=== PATIENT | male | born 1950 | race Caucasian/White ===

== ENCOUNTER 2017-08-07 06:28 | Day surgery (SDC) | payer MEDICARE, BC ==
[2017-08-07] MEDS ORDERED: fentaNYL 100 MCG/2 ML SDV ONE (07:00)
[2017-08-07] MEDS ORDERED: Midazolam 1 MG/ML 2 ML SDV ONE (07:00)
[2017-08-07] MEDS ORDERED: Propofol 200 MG/20 ML SDV ONE (07:00)
[2017-08-07] MEDS ORDERED: Lactated Ringers 1,000 ML IV SCH (07:00)
--- NOTE | 2017-08-08 09:53 | PROC ---
DATE OF PROCEDURE: 08/07/2017 INDICATIONS: Farooq is a 67-year-old male who comes in for a screening colonoscopy because there is a strong family history of colon cancer with his brother. The risks and benefits were explained and the patient was taken to the OR. PROCEDURE IN DETAIL: Anesthesia was given by nurse dust box tender. During the procedure, we used 2 mg of Versed, 2 mL of fentanyl, and 200 mg of propofol. The Olympus 180L scope was used, it was placed in the rectum and after examination of the rectum with a gloved finger and then the tube was placed into the rectum and advanced under direct vision. We did get to the cecum with minimal difficulty. Upon slow retraction of the tube, we noted no lesions or ulceration. No abnormalities throughout the entire colon except for infrequent diverticula. The tube was removed. The patient tolerated the procedure well. PREOPERATIVE DIAGNOSIS: Family history of colon cancer. POSTOPERATIVE DIAGNOSIS: Normal colon from cecum to rectum except for diverticula. Levon Hurtado MD /[id number]
== END 2017-08-07 09:12 | disposition home or self-care (01) ==
LOC: JP.SDS 06:28
PROVIDERS: ATTEND Internal Medicine
DX: Z12.11 Encounter for screening for malignant neoplasm of colon (principal); K57.30 Diverticulosis of large intestine without perforation or abscess without bleeding; I10 Essential (primary) hypertension; G47.33 Obstructive sleep apnea (adult) (pediatric); Z99.89 Dependence on other enabling machines and devices; Z88.0 Allergy status to penicillin
CPT/HCPCS: J2250; J2704; J3010; J7120

== ENCOUNTER 2018-09-30 07:13 | Inpatient (IN) | payer MEDICARE, BC ==
--- NOTE | 2018-09-30 08:06 | EDM.PDOC ---
ED HPI GENERAL MEDICAL PROBLEM - General Chief Complaint: Respiratory Problem Stated Complaint: SHORTNESS OF BREATH Time Seen by Provider: 09/30/18 07:50 Source of Information: Reports: Patient, Family, Old Records, RN History Limitations: Reports: No Limitations - History of Present Illness INITIAL COMMENTS - FREE TEXT/NARRATIVE: 68 yo male here with MULLER for the past month that has accelerated over the past few days. He is coughing, but this is minimally productive. No fever or chills. No black or bloody stools. No hx of lung dz. No chest pains. Has sleep apnea and uses a CPAP device at night and with this sleeps fine. Has not been to the clinic at any point for this. Recalled later in his ER stay that he had had R calf pain about 1.5 weeks ago, thought it was a "Sha Horse". Onset: Gradual Onset Date: 08/31/18 Duration: Week(s):, Getting Worse Location: Reports: Chest Quality: Reports: Other (no pain) Severity: Moderate Improves with: Reports: Rest Worsens with: Reports: Movement (exertion) Context: Reports: Other (see HPI) Associated Symptoms: Reports: Cough, Shortness of Breath (tin with exertion). Denies: Chest Pain, Fever/Chills Treatments RECRUITING ASSOCIATE: Reports: Other (see below) (none) - Related Data Allergies Allergy/AdvReac Type Severity Reaction Status Date / Time No Known Allergies Allergy Verified 08/07/17 06:44 Home Meds: Home Meds Lisinopril 20 mg PO DAILY 08/05/17 [History] Past Medical History HEENT History: Reports: Impaired Vision Cardiovascular History: Reports: Hypertension Respiratory History: Reports: Sleep Apnea Gastrointestinal History: Reports: None Musculoskeletal History: Reports: Back Pain, Chronic, Gout Endocrine/Metabolic History: Reports: Obesity/BMI 30+ - Infectious Disease History Infectious Disease History: Reports: Chicken Pox, Measles, Mumps - Past Surgical History Head Surgeries/Procedures: Reports: None HEENT Surgical History: Reports: None Cardiovascular Surgical History: Reports: None Respiratory Surgical History: Reports: None GI Surgical History: Reports: Colonoscopy, Hernia, Abdominal Endocrine Surgical History: Reports: None Musculoskeletal Surgical History: Reports: None Dermatological Surgical History: Reports: None Social & Family History - Family History Family Medical History: Noncontributory - Tobacco Use Smoking Status *Q: Never Smoker - Caffeine Use Caffeine Use: Reports: Coffee - Recreational Drug Use Recreational Drug Use: No ED ROS GENERAL - Review of Systems Review Of Systems: See Below Constitutional: Reports: No Symptoms HEENT: Reports: No Symptoms Respiratory: Reports: Shortness of Breath, Cough. Denies: Wheezing, Pleuritic Chest Pain, Sputum, Hemoptysis Cardiovascular: Reports: Dyspnea on Exertion, Lightheadedness (occasionally with standing). Denies: Claudication, Edema, Orthopnea, Palpitations Endocrine: Reports: No Symptoms GI/Abdominal: Reports: No Symptoms : Reports: No Symptoms Musculoskeletal: Reports: No Symptoms Skin: Reports: No Symptoms Neurological: Reports: No Symptoms Psychiatric: Reports: No Symptoms ED EXAM, GENERAL - Physical Exam Exam: See Below Exam Limited By: No Limitations General Appearance: Alert, WD/WN, No Apparent Distress Eye Exam: Right Eye: Vision Changes, Bilateral Eye: Normal Inspection Ears: Normal External Exam, Normal Canal, Hearing Grossly Normal, Normal TMs Ear Exam: Bilateral Ear: Auricle Normal, Canal Normal, TM normal Nose: Normal Inspection, No Blood Throat/Mouth: Normal Inspection, Normal Lips, Normal Oropharynx, Normal Voice, No Airway Compromise Head: Atraumatic, Normocephalic Neck: Normal Inspection Respiratory/Chest: No Respiratory Distress, Lungs Clear, Normal Breath Sounds, No Accessory Muscle Use Cardiovascular: Regular Rate, Rhythm, No Edema, Tachycardia GI/Abdominal: Normal Bowel Sounds, Soft, Non-Tender, No Distention Back Exam: Normal Inspection Extremities: Normal Inspection, Normal Range of Motion, Non-Tender, No Pedal Edema Neurological: Alert, Oriented, CN II-XII Intact, Normal Cognition, No Motor/ Sensory Deficits Psychiatric: Normal Affect, Normal Mood Skin Exam: Warm, Dry, Intact, Normal Color, No Rash Course - Vital Signs Text/Narrative:: Dr. Hurtado notified @ 1000h Last Recorded V/S: Last Vital Signs Temp 37.0 C 09/30/18 14:59 Pulse 91 09/30/18 14:59 Resp 16 09/30/18 14:59 BP 94/72 09/30/18 14:59 Pulse Ox 92 L 09/30/18 16:39 - Orders/Labs/Meds Orders: Active Orders 24 hr Category Date Time Status Patient Status [ADT] Routine ADT 09/30/18 10:49 Active Height and Weight [RC] DAILY Care 09/30/18 10:40 Active Intake and Output [RC] QSHIFT Care 09/30/18 10:51 Active Oxygen Therapy [RC] PRN Care 09/30/18 10:49 Active Up ad Esperanza [RC] ASDIRECTED Care 09/30/18 10:40 Active VTE/DVT Education [RC] Per Unit Routine Care 09/30/18 10:49 Active Vital Signs [RC] Q4H Care 09/30/18 10:49 Active Regular Diet [DIET] Diet 10/01/18 Breakfast Active Sodium Chloride 0.9% [Normal Saline] 1,000 ml Med 09/30/18 09:00 Active IV ASDIRECTED Sodium Chloride 0.9% [Saline Flush] Med 09/30/18 10:40 Active 10 ml FLUSH ASDIRECTED PRN Warfarin [Coumadin] Med 09/30/18 13:00 Active 5 mg PO DAILY@1300 Saline Lock Insert [OM.PC] Routine Oth 09/30/18 10:40 Ordered Resuscitation Status Routine Resus Stat 09/30/18 10:40 Ordered Medication Orders Enoxaparin Sodium 80 mg/ (Enoxaparin Sodium 30 mg) 110 mg SUBCUT Q12H [facility] Sodium Chloride (Normal Saline) 1,000 mls @ 150 mls/hr IV ASDIRECTED [facility] Last Admin: 09/30/18 09:38 Dose: 150 mls/hr Lisinopril (Prinivil) 20 mg PO DAILY [facility] Sodium Chloride (Saline Flush) 10 ml FLUSH ASDIRECTED PRN PRN Reason: Keep Vein Open Warfarin Sodium (Coumadin) 5 mg PO DAILY@1300 [facility] Last Admin: 09/30/18 14:20 Dose: 5 mg Labs: Laboratory Tests 09/30/18 09/30/18 09/30/18 Range/Units 08:06 08:06 08:06 WBC 11.8 H (4.5-11.0) K/uL RBC 5.14 (4.30-5.90) M/uL Hgb 15.1 H (12.0-15.0) g/dL Hct 46.1 (40.0-54.0) % MCV 90 (80-98) fL MCH 29 (27-31) pg MCHC 33 (32-36) % Plt Count 202 (150-400) K/uL D-Dimer, Quantitative 3290 H (0.0-400.0) ng/mL Sodium 141 (140-148) mmol/L Potassium 4.3 (3.6-5.2) mmol/L Chloride 105 (100-108) mmol/L Carbon Dioxide 22 (21-32) mmol/L Anion Gap 13.6 (5.0-14.0) mmol/L BUN 18 (7-18) mg/dL Creatinine 1.3 (0.8-1.3) mg/dL Est Cr Clr Drug Dosing 49.43 mL/min Estimated GFR (MDRD) 55 L (>60) Glucose 132 H (74-106) mg/dL Calcium 9.1 (8.5-10.1) mg/dL Troponin I 0.649 H* (0.000-0.056) ng/mL NT-Pro-B Natriuret Pep (5-125) pg/mL 09/30/18 Range/Units 08:06 WBC (4.5-11.0) K/uL RBC (4.30-5.90) M/uL Hgb (12.0-15.0) g/dL Hct (40.0-54.0) % MCV (80-98) fL MCH (27-31) pg MCHC (32-36) % Plt Count (150-400) K/uL D-Dimer, Quantitative (0.0-400.0) ng/mL Sodium (140-148) mmol/L Potassium (3.6-5.2) mmol/L Chloride (100-108) mmol/L Carbon Dioxide (21-32) mmol/L Anion Gap (5.0-14.0) mmol/L BUN (7-18) mg/dL Creatinine (0.8-1.3) mg/dL Est Cr Clr Drug Dosing mL/min Estimated GFR (MDRD) (>60) Glucose (74-106) mg/dL Calcium (8.5-10.1) mg/dL Troponin I (0.000-0.056) ng/mL NT-Pro-B Natriuret Pep 4851 H (5-125) pg/mL Meds: Medications Generic Name Dose Route Start Last Admin Trade Name Freq PRN Reason Stop Dose Admin Enoxaparin Sodium 80 mg/ 110 mg 09/30/18 22:00 Enoxaparin Sodium 30 mg SUBCUT Q12H [facility] Sodium Chloride 1,000 mls @ 150 mls/hr 09/30/18 09:00 09/30/18 09:38 Normal Saline IV 150 mls/hr ASDIRECTED [facility] Administration Lisinopril 20 mg 10/01/18 09:00 Prinivil PO DAILY [facility] Sodium Chloride 10 ml 09/30/18 10:40 Saline Flush FLUSH ASDIRECTED PRN Keep Vein Open Warfarin Sodium 5 mg 09/30/18 13:00 09/30/18 14:20 Coumadin PO 5 mg DAILY@1300 [facility] Administration Discontinued Medications Generic Name Dose Route Start Last Admin Trade Name Freq PRN Reason Stop Dose Admin Enoxaparin Sodium 100 mg 09/30/18 09:53 09/30/18 09:58 Lovenox SUBCUT 09/30/18 09:54 100 mg ONETIME ONE Administration Sodium Chloride 80 mls @ 3 mls/sec 09/30/18 09:00 09/30/18 09:26 Normal Saline IV 09/30/18 16:00 3 mls/sec ASDIRECTED [facility] Administration Iopamidol 79 ml 09/30/18 09:00 09/30/18 09:27 Isovue-370 (76%) IV 09/30/18 16:00 100 ml . DIRECTED [facility] Administration Sodium Chloride 10 ml 09/30/18 09:00 09/30/18 09:10 Saline Flush FLUSH 09/30/18 09:01 10 ml ONETIME ONE Administration - Radiology Interpretation Free Text/Narrative:: CXR-neg CTA chest-bilateral PE's CT Results Date: 09/30/18 Departure - Departure Time of Disposition: 12:00 Disposition: Admitted As Inpatient 64 Condition: Fair Clinical Impression: Pulmonary emboli Qualifiers: Pulmonary embolism type: other Chronicity: acute Acute cor pulmonale presence: without acute cor pulmonale Qualified Code(s): I26.99 - Other pulmonary embolism without acute cor pulmonale - Discharge Information - My Orders Last 24 Hours: My Active Orders 09/30/18 09:00 Sodium Chloride 0.9% [Normal Saline] 1,000 ml IV ASDIRECTED - Assessment/Plan Last 24 Hours: My Active Orders 09/30/18 09:00 Sodium Chloride 0.9% [Normal Saline] 1,000 ml IV ASDIRECTED
[2018-09-30] MEDS ORDERED: Iopamidol 755 Mg/ML 100 ML Bottle IV SCH (09:00)
[2018-09-30] MEDS ORDERED: Sodium Chloride 0.9% 1,000 ML IV SCH (09:00)
[2018-09-30] MEDS ORDERED: Sodium Chloride 0.9% 10 ML Syringe FLUSH ONE (09:00)
[2018-09-30] MEDS ORDERED: Sodium Chloride 0.9% 80 ML IV SCH (09:00)
[2018-09-30] MEDS ORDERED: Enoxaparin 100 MG/1 ML Syringe SUBCUT ONE (09:53)
[2018-09-30] MEDS ORDERED: Sodium Chloride 0.9% 10 ML Syringe FLUSH PRN (10:40)
--- NOTE | 2018-09-30 10:50 | CRLCT ---
INDICATION: Shortness of breath, elevated D-dimer. COMPARISON: Chest radiograph 09/30/2018. TECHNIQUE: CT volumetric acquisition was performed of the thorax during intravenous infusion Omnipaque-350 nonionic intravenous contrast. Please note that all CT scans at this facility use dose modulation, iterative reconstruction, and/or weight-based dosing when appropriate to reduce radiation dose to as low as reasonably achievable. FINDINGS: Large burden bilateral pulmonary emboli within the distal main pulmonary arteries and extending into the segmental and subsegmental pulmonary artery branches of all the lobes. There is evidence of right heart strain with enlargement of the right ventricle and leftward bowing of the interventricular septum. The lungs are clear bilaterally without evidence of developing pulmonary infarcts. Mild right basilar atelectasis. Calcified granuloma left upper lobe. Aneurysmal dilation of the ascending thoracic aorta to 4.3 cm in greatest AP dimension. There is also enlargement of the pulmonary artery trunk. Moderately severe coronary artery plaque. No pericardial effusion. No thoracic lymphadenopathy. Linear subcapsular enhancement or calcification along the posterior aspect of the spleen (series 4 image 111) may be due to phase of contrast. A few tiny calcified splenic granulomas. Partially visualized probable hepatic cyst inferiorly. The remainder of the visualized upper abdomen is unremarkable. IMPRESSION: 1. Large burden acute pulmonary emboli in the distal main pulmonary arteries bilaterally and extending into the segmental and subsegmental pulmonary artery branches of all the lobes. Findings discussed with the ordering provider the time dictation. 2. Evidence of right heart strain with enlargement of the right ventricle and bowing of the interventricular septum. 3. Aneurysmal dilation of the ascending thoracic aorta to 4.3 cm. Please note that all CT scans at this facility use dose modulation, iterative reconstruction, and/or weight-based dosing when appropriate to reduce radiation dose to as low as reasonably achievable. Dictated by Rhona Peterson MD @ Sep 30 2018 10:32AM Signed by Dr. Rhona Peterson @ Sep 30 2018 10:49AM
--- NOTE | 2018-09-30 10:52 | CRLCR ---
INDICATION: SOB. TECHNIQUE: PA and lateral. COMPARISON: None. FINDINGS: Lungs and pleural spaces clear. Heart size and pulmonary vasculature within normal limits. No significant osseous abnormality. IMPRESSION: Negative chest. Dictated by Alexei Camp MD @ Sep 30 2018 10:49AM Signed by Dr. Alexei Camp @ Sep 30 2018 10:50AM
--- NOTE | 2018-09-30 12:36 | CRLUS ---
INDICATION: PE seen on CT today. COMPARISON: None. TECHNIQUE: A compression venous ultrasound exam was performed of both lower extremities using brown scale imaging, color Doppler and spectral Doppler analysis. FINDINGS: Right: There is acute expansile thrombus within the popliteal vein with partial occlusion of doppler flow. There is also incompressibility and lack of Doppler flow within the posterior tibial vein in the calf. The right common femoral, deep femoral, femoral, and greater saphenous veins are patent with normal compressibility and color Doppler flow. The peroneal vein was not well seen. Left: Normal compressibility and color Doppler venous blood flow within the left common femoral, deep femoral, femoral, and proximal greater saphenous veins. At a lower level the popliteal and posterior tibial veins also show normal compressibility and color Doppler venous blood flow. IMPRESSION: 1. Acute partially occlusive thrombus within the right popliteal vein. Findings discussed with the ordering provider the time of dictation. 2. Acute occlusive thrombus within the right posterior tibial vein. 3. Negative for acute DVT in the left lower extremity. Dictated by Rhona Peterson MD @ Sep 30 2018 12:22PM Signed by Dr. Rhona Peterson @ Sep 30 2018 12:35PM
[2018-09-30] MEDS ORDERED: Warfarin 5 MG Tab PO SCH (13:00)
--- NOTE | 2018-09-30 17:33 | PCM.HP ---
H&P History of Present Illness - General Date of Service: 09/30/18 Admit Problem/Dx: Admission Diagnosis/Problem Admission Diagnosis/Problem Pulmonary embolism Source of Information: Patient, EMS, EMS Notes Reviewed History Limitations: Reports: No Limitations - History of Present Illness Initial Comments - Free Text/Narative: Bernabe started to have pain in his right calf about 3 or 4 weeks ago and is been progressive ever since. He has had shortness of breath for about 2 or 3 weeks became quite severe this morning and asked to go to the emergency room because of shortness of breath with any activity. He's never had a similar problem before. He denies taking any trips sitting for a prolonged time or any injury to his leg. He has never had a pulmonary embolism before. Onset of Symptoms: Reports: Gradual Location: Reports: Chest, Lower Extremity, Right Severity: Moderate Associated Symptoms: Reports: Shortness of Breath, Weakness - Related Data Allergies/Adverse Reactions: Allergies Allergy/AdvReac Type Severity Reaction Status Date / Time No Known Allergies Allergy Verified 08/07/17 06:44 Home Medications: Home Meds Lisinopril 20 mg PO DAILY 08/05/17 [History] Past Medical History HEENT History: Reports: Impaired Vision Cardiovascular History: Reports: Hypertension Respiratory History: Reports: Sleep Apnea Gastrointestinal History: Reports: None Musculoskeletal History: Reports: Back Pain, Chronic, Gout Endocrine/Metabolic History: Reports: Obesity/BMI 30+ - Infectious Disease History Infectious Disease History: Reports: Chicken Pox, Measles, Mumps - Past Surgical History Head Surgeries/Procedures: Reports: None HEENT Surgical History: Reports: None Cardiovascular Surgical History: Reports: None Respiratory Surgical History: Reports: None GI Surgical History: Reports: Colonoscopy, Hernia, Abdominal Endocrine Surgical History: Reports: None Musculoskeletal Surgical History: Reports: None Dermatological Surgical History: Reports: None Social & Family History - Family History Family Medical History: Noncontributory - Tobacco Use Smoking Status *Q: Never Smoker - Caffeine Use Caffeine Use: Reports: Coffee - Recreational Drug Use Recreational Drug Use: No H&P Review of Systems - Review of Systems: Review Of Systems: See Below General: Reports: Weakness HEENT: Reports: No Symptoms Pulmonary: Reports: Shortness of Breath Cardiovascular: Reports: No Symptoms Gastrointestinal: Reports: No Symptoms Genitourinary: Reports: No Symptoms Musculoskeletal: Reports: Leg Pain Skin: Reports: No Symptoms Psychiatric: Reports: No Symptoms Neurological: Reports: No Symptoms Exam - Exam Exam: See Below - Vital Signs Vital Signs: Last Vital Signs Temp 98.6 F 09/30/18 14:59 Pulse 91 09/30/18 14:59 Resp 16 09/30/18 14:59 BP 94/72 09/30/18 14:59 Pulse Ox 92 L 09/30/18 16:39 Weight: 244 lb 12.8 oz - Exam General: Alert, Oriented, 4 HEENT: PERRLA, Hearing Intact, Mucosa Moist & [place], Nares Patent, Normal Nasal Septum, Posterior Pharynx Clear, Conjunctiva Clear, EOMI, EACs Clear, TMs Clear Neck: Supple, Trachea Midline, 2 Lungs: Clear to Auscultation, Normal Respiratory Effort Cardiovascular: Regular Rate, Regular Rhythm GI/Abdominal Exam: Normal Bowel Sounds, Soft, Non-Tender, No Organomegaly, No Distention, No Abnormal Bruit, No Mass, Pelvis Stable Extremities: Leg Pain Peripheral Pulses: 1+: Radial (L), Radial (R) Skin: Warm, Dry, Intact - Patient Data Lab Results Last 24 hrs: Laboratory Results - last 24 hr 09/30/18 09/30/18 09/30/18 Range/Units 08:06 08:06 08:06 WBC 11.8 H (4.5-11.0) K/uL RBC 5.14 (4.30-5.90) M/uL Hgb 15.1 H (12.0-15.0) g/dL Hct 46.1 (40.0-54.0) % MCV 90 (80-98) fL MCH 29 (27-31) pg MCHC 33 (32-36) % Plt Count 202 (150-400) K/uL PT (9.5-12.0) sec INR (0.80-1.20) D-Dimer, Quantitative 3290 H (0.0-400.0) ng/mL Sodium 141 (140-148) mmol/L Potassium 4.3 (3.6-5.2) mmol/L Chloride 105 (100-108) mmol/L Carbon Dioxide 22 (21-32) mmol/L Anion Gap 13.6 (5.0-14.0) mmol/L BUN 18 (7-18) mg/dL Creatinine 1.3 (0.8-1.3) mg/dL Est Cr Clr Drug Dosing 49.43 mL/min Estimated GFR (MDRD) 55 L (>60) Glucose 132 H (74-106) mg/dL Calcium 9.1 (8.5-10.1) mg/dL Creatine Kinase (39-308) U/L Troponin I 0.649 H* (0.000-0.056) ng/mL NT-Pro-B Natriuret Pep (5-125) pg/mL 09/30/18 09/30/18 09/30/18 Range/Units 08:06 11:07 14:00 WBC (4.5-11.0) K/uL RBC (4.30-5.90) M/uL Hgb (12.0-15.0) g/dL Hct (40.0-54.0) % MCV (80-98) fL MCH (27-31) pg MCHC (32-36) % Plt Count (150-400) K/uL PT 10.9 (9.5-12.0) sec INR 1.01 (0.80-1.20) D-Dimer, Quantitative (0.0-400.0) ng/mL Sodium (140-148) mmol/L Potassium (3.6-5.2) mmol/L Chloride (100-108) mmol/L Carbon Dioxide (21-32) mmol/L Anion Gap (5.0-14.0) mmol/L BUN (7-18) mg/dL Creatinine (0.8-1.3) mg/dL Est Cr Clr Drug Dosing mL/min Estimated GFR (MDRD) (>60) Glucose (74-106) mg/dL Calcium (8.5-10.1) mg/dL Creatine Kinase (39-308) U/L Troponin I 0.641 H* (0.000-0.056) ng/mL NT-Pro-B Natriuret Pep 4851 H (5-125) pg/mL 09/30/18 Range/Units 14:00 WBC (4.5-11.0) K/uL RBC (4.30-5.90) M/uL Hgb (12.0-15.0) g/dL Hct (40.0-54.0) % MCV (80-98) fL MCH (27-31) pg MCHC (32-36) % Plt Count (150-400) K/uL PT (9.5-12.0) sec INR (0.80-1.20) D-Dimer, Quantitative (0.0-400.0) ng/mL Sodium (140-148) mmol/L Potassium (3.6-5.2) mmol/L Chloride (100-108) mmol/L Carbon Dioxide (21-32) mmol/L Anion Gap (5.0-14.0) mmol/L BUN (7-18) mg/dL Creatinine (0.8-1.3) mg/dL Est Cr Clr Drug Dosing mL/min Estimated GFR (MDRD) (>60) Glucose (74-106) mg/dL Calcium (8.5-10.1) mg/dL Creatine Kinase 337 H (39-308) U/L Troponin I (0.000-0.056) ng/mL NT-Pro-B Natriuret Pep (5-125) pg/mL Result Diagrams: 09/30/18 08:06 09/30/18 08:06 Problem List Initiated/Reviewed/Updated: Yes Orders Last 24hrs: Active Orders 24 hr Category Date Time Status Patient Status [ADT] Routine ADT 09/30/18 10:49 Active EKG Documentation Completion [RC] ASDIRECTED Care 09/30/18 14:57 Active Height and Weight [RC] DAILY Care 09/30/18 10:40 Active Intake and Output [RC] QSHIFT Care 09/30/18 10:51 Active Oxygen Therapy [RC] PRN Care 09/30/18 10:49 Active Up ad Esperanza [RC] ASDIRECTED Care 09/30/18 10:40 Active VTE/DVT Education [RC] Per Unit Routine Care 09/30/18 10:49 Active Vital Signs [RC] Q4H Care 09/30/18 10:49 Active Regular Diet [DIET] Diet 10/01/18 Breakfast Active Enoxaparin [Lovenox] Med 09/30/18 22:00 Active 110 mg SUBCUT Q12H Lisinopril [Prinivil] Med 10/01/18 09:00 Active 20 mg PO DAILY Sodium Chloride 0.9% [Normal Saline] 1,000 ml Med 09/30/18 09:00 Active IV ASDIRECTED Sodium Chloride 0.9% [Saline Flush] Med 09/30/18 10:40 Active 10 ml FLUSH ASDIRECTED PRN Warfarin [Coumadin] Med 09/30/18 13:00 Active 5 mg PO DAILY@1300 Pulse Oximetry Continuous Monitoring [OM.PC] Routine Oth 09/30/18 15:50 Ordered Saline Lock Insert [OM.PC] Routine Oth 09/30/18 10:40 Ordered Resuscitation Status Routine Resus Stat 09/30/18 10:40 Ordered EKG 12 Lead [EK] Urgent Ther 09/30/18 14:57 Ordered Medication Orders Enoxaparin Sodium 80 mg/ (Enoxaparin Sodium 30 mg) 110 mg SUBCUT Q12H [facility] Sodium Chloride (Normal Saline) 1,000 mls @ 150 mls/hr IV ASDIRECTED [facility] Last Admin: 09/30/18 09:38 Dose: 150 mls/hr Lisinopril (Prinivil) 20 mg PO DAILY [facility] Sodium Chloride (Saline Flush) 10 ml FLUSH ASDIRECTED PRN PRN Reason: Keep Vein Open Warfarin Sodium (Coumadin) 5 mg PO DAILY@1300 [facility] Last Admin: 09/30/18 14:20 Dose: 5 mg Assessment/Plan Comment:: Assessment/plan: #1. Bilateral pulmonary embolism. The x-ray by CT angiogram showed significant involvement with a large burden acute pulmonary embolism in the distal main pulmonary arteries bilaterally extending into the segment and subsegmental pulmonary artery branches of all the lobes. There is evidence of right heart strain with enlargement of the right ventricle and a bowing of the interventricular septum. There is aneurysmal dilatation of the ascending thoracic aorta to 4.3 cm. #2. Deep vein thrombosis: There is acute partial occlusive thrombus within the right popliteal vein and acute occlusive thrombus within the right posterior tibial vein. The left lower extremity is unremarkable. #3. HTN: Continue with Lisinopril #4. Elevation of trop and CK. EKG was normal. Will observe clinically. Evening rounds. He has significant SOB with walking to the bathroom in his room. I called Dr. Dwyer from [facility] and he said after noting the CTA that he is on the boaderline for angio and injections in the lung. We have decided to start with the PE protocol for Heparin and decide tomorrow morning if we should be more aggressive. As long as he is comfortable sitting and O2 is ok we will wait until the morning. If he is improving by the morning will not transfer.
[2018-09-30] MEDS ORDERED: Heparin Sodium/D5W 25,000 UNITS/500 ML BAG IV SCH (19:15)
[2018-09-30] MEDS ORDERED: Heparin Sodium 5,000 Units/ML Vial IVPUSH PRN (19:42)
[2018-09-30] MEDS: Heparin Sodium/D5W 25,000 UNITS/500 ML BAG IV SCH (19:59)
[2018-09-30] MEDS ORDERED: Heparin Sodium 5,000 Units/ML Vial IVPUSH ONE (20:00)
[2018-10-01] MEDS: Lisinopril 20 MG Tab PO SCH (08:37)
[2018-10-01] MEDS: Heparin Sodium/D5W 25,000 UNITS/500 ML BAG IV SCH ×2 (10:35→13:02)
[2018-10-01] MEDS ORDERED: Warfarin 5 MG Tab PO ONE (16:00)
--- NOTE | 2018-10-01 17:11 | PCM.PN ---
- General Info Date of Service: 10/01/18 Functional Status: Reports: Pain Controlled - Review of Systems General: Reports: No Symptoms HEENT: Reports: No Symptoms Pulmonary: Reports: Shortness of Breath Cardiovascular: Reports: No Symptoms Gastrointestinal: Reports: No Symptoms Genitourinary: Reports: No Symptoms Musculoskeletal: Reports: No Symptoms Skin: Reports: No Symptoms Neurological: Reports: No Symptoms Psychiatric: Reports: No Symptoms - Patient Data Vitals - Most Recent: Last Vital Signs Temp 98.3 F 10/01/18 14:51 Pulse 77 10/01/18 14:51 Resp 18 10/01/18 14:51 BP 102/82 10/01/18 14:51 Pulse Ox 94 L 10/01/18 14:51 Weight - Most Recent: 244 lb 12.785 oz I&O - Last 24 Hours: Intake & Output 10/01/18 10/01/18 10/01/18 06:59 14:59 22:59 Intake Total 360 Output Total 350 Balance -350 360 Lab Results Last 24 Hours: Laboratory Results - last 24 hr 09/30/18 10/01/18 10/01/18 Range/Units 14:00 02:01 08:47 APTT 32.4 58.3 H 47.4 H (27.0-36.0) sec Med Orders - Current: Current Medications Heparin Sodium (Porcine) (Heparin Sodium) 1,500 - 2,500 units IVPUSH ASDIRECTED PRN PRN Reason: BASED ON PTT LAB RESULTS Last Admin: 10/01/18 10:30 Dose: 1,500 units Heparin Sodium/Dextrose (Heparin 25,000 Units In D5w 500 Ml) 25,000 units in 500 mls @ 26 mls/hr IV TITRATE [facility]; Protocol Last Admin: 10/01/18 13:02 Dose: 13.7 units/kg/hr, 30.425 mls/hr Lisinopril (Prinivil) 20 mg PO DAILY [facility] Last Admin: 10/01/18 08:37 Dose: 20 mg Sodium Chloride (Saline Flush) 10 ml FLUSH ASDIRECTED PRN PRN Reason: Keep Vein Open Discontinued Medications Enoxaparin Sodium (Lovenox) 100 mg SUBCUT ONETIME ONE Stop: 09/30/18 09:54 Last Admin: 09/30/18 09:58 Dose: 100 mg Enoxaparin Sodium 80 mg/ (Enoxaparin Sodium 30 mg) 110 mg SUBCUT Q12H [facility] Heparin Sodium (Porcine) (Heparin Sodium) 5,000 units IVPUSH ONETIME ONE Stop: 09/30/18 20:01 Last Admin: 09/30/18 19:54 Dose: 5,000 units Sodium Chloride (Normal Saline) 1,000 mls @ 150 mls/hr IV ASDIRECTED [facility] Last Admin: 09/30/18 09:38 Dose: 150 mls/hr Sodium Chloride (Normal Saline) 80 mls @ 3 mls/sec IV ASDIRECTED [facility] Stop: 09/30/18 16:00 Last Admin: 09/30/18 09:26 Dose: 3 mls/sec Heparin Sodium/Dextrose (Heparin 25,000 Units In D5w 500 Ml) 25,000 units in 500 mls @ 2,887.014 mls/hr IV TITRATE [facility]; Protocol Iopamidol (Isovue-370 (76%)) 79 ml IV . DIRECTED [facility] Stop: 09/30/18 16:00 Last Admin: 09/30/18 09:27 Dose: 100 ml Sodium Chloride (Saline Flush) 10 ml FLUSH ONETIME ONE Stop: 09/30/18 09:01 Last Admin: 09/30/18 09:10 Dose: 10 ml Warfarin Sodium (Coumadin) 5 mg PO DAILY@1300 [facility] Last Admin: 09/30/18 14:20 Dose: 5 mg Warfarin Sodium (Coumadin) 5 mg PO ONETIME ONE Stop: 10/01/18 16:01 - Exam General: Alert, Oriented HEENT: Pupils Equal, Pupils Reactive, EOMI, Mucous Membr. Moist/[place] Neck: Supple Lungs: Clear to Auscultation, Normal Respiratory Effort Cardiovascular: Regular Rate, Regular Rhythm Back Exam: Normal Inspection, Full Range of Motion Extremities: Normal Inspection, Normal Range of Motion, Non-Tender, No Pedal Edema, Normal Capillary Refill Peripheral Pulses: 1+: Radial (L), Radial (R) Skin: Warm, Dry, Intact Neurological: No New Focal Deficit Psy/Mental Status: Alert, Normal Affect, Normal Mood - Problem List Review Problem List Initiated/Reviewed/Updated: Yes - My Orders Last 24 Hours: My Active Orders 09/30/18 19:42 Heparin Sodium 1,500 - 2,500 units IVPUSH ASDIRECTED PRN 09/30/18 20:00 Heparin Sodium/D5W [Heparin 25,000 Units in D5W 500 ML] 25,000 units in 500 ml IV TITRATE 10/01/18 09:00 Lisinopril [Prinivil] 20 mg PO DAILY 10/01/18 16:30 aPTT [PTT,PARTIAL THROMBOPLSTIN TIME] [COAG] Routine 10/01/18 16:54 TROPONIN I [CHEM] Routine 10/01/18 17:00 FACTOR V LEIDEN MUTATION Routine 10/01/18 Breakfast Regular Diet [DIET] 10/02/18 05:00 INR,PT,PROTHROMBIN TIME [COAG] Routine 10/03/18 05:00 INR,PT,PROTHROMBIN TIME [COAG] DAILY 10/04/18 05:00 INR,PT,PROTHROMBIN TIME [COAG] DAILY 10/05/18 05:00 INR,PT,PROTHROMBIN TIME [COAG] DAILY 10/06/18 05:00 INR,PT,PROTHROMBIN TIME [COAG] DAILY 10/07/18 05:00 INR,PT,PROTHROMBIN TIME [COAG] DAILY 10/08/18 05:00 INR,PT,PROTHROMBIN TIME [COAG] DAILY 10/09/18 05:00 INR,PT,PROTHROMBIN TIME [COAG] DAILY 10/10/18 05:00 INR,PT,PROTHROMBIN TIME [COAG] DAILY 10/11/18 05:00 INR,PT,PROTHROMBIN TIME [COAG] DAILY 10/12/18 05:00 INR,PT,PROTHROMBIN TIME [COAG] DAILY - Plan Plan:: Assessment/plan: #1. Bilateral pulmonary embolism. ((The x-ray by CT angiogram showed significant involvement with a large burden acute pulmonary embolism in the distal main pulmonary arteries bilaterally extending into the segment and subsegmental pulmonary artery branches of all the lobes. There is evidence of right heart strain with enlargement of the right ventricle and a bowing of the interventricular septum. There is aneurysmal dilatation of the ascending thoracic aorta to 4.3 cm.)) He is doing much better today without SOB without oxygen. Factor V Leiden pending. Will continue with Heparin. Coumadin restarted today at 5 mg. #2. Deep vein thrombosis: ((There is acute partial occlusive thrombus within the right popliteal vein and acute occlusive thrombus within the right posterior tibial vein. The left lower extremity is unremarkable.)) Stable today #3. HTN: Continue with Lisinopril 102/82 this PM #4. Elevation of trop and CK. EKG was normal. Trop and CK pending.
[2018-10-02] MEDS: Heparin Sodium/D5W 25,000 UNITS/500 ML BAG IV SCH ×2 (04:27→20:47)
[2018-10-02] MEDS: Lisinopril 20 MG Tab PO SCH (08:52)
[2018-10-02] MEDS ORDERED: Warfarin 5 MG Tab PO ONE (11:00)
--- NOTE | 2018-10-02 14:27 | PCM.PN ---
- General Info Date of Service: 10/02/18 Functional Status: Reports: Pain Controlled - Review of Systems General: Reports: Weakness HEENT: Reports: No Symptoms Pulmonary: Reports: No Symptoms Cardiovascular: Reports: No Symptoms Gastrointestinal: Reports: No Symptoms Musculoskeletal: Reports: No Symptoms Skin: Reports: No Symptoms Neurological: Reports: No Symptoms Psychiatric: Reports: No Symptoms - Patient Data Vitals - Most Recent: Last Vital Signs Temp 97.2 F 10/02/18 10:50 Pulse 79 10/02/18 10:50 Resp 18 10/02/18 10:50 BP 118/81 10/02/18 10:50 Pulse Ox 90 L 10/02/18 12:42 Weight - Most Recent: 244 lb 12.785 oz I&O - Last 24 Hours: Intake & Output 10/01/18 10/02/18 10/02/18 22:59 06:59 14:59 Intake Total 590 634 736 Output Total 175 600 Balance 415 34 736 Lab Results Last 24 Hours: Laboratory Results - last 24 hr 10/01/18 10/01/18 10/01/18 Range/Units 16:30 16:54 16:54 PT (9.5-12.0) sec INR (0.80-1.20) APTT 56.6 H (27.0-36.0) sec Creatine Kinase 396 H (39-308) U/L Troponin I 0.194 H* (0.000-0.056) ng/mL 10/01/18 10/02/18 Range/Units 22:23 05:15 PT 11.3 (9.5-12.0) sec INR 1.05 (0.80-1.20) APTT 52.3 H 56.2 H (27.0-36.0) sec Creatine Kinase (39-308) U/L Troponin I (0.000-0.056) ng/mL Med Orders - Current: Current Medications Heparin Sodium (Porcine) (Heparin Sodium) 1,500 - 2,500 units IVPUSH ASDIRECTED PRN PRN Reason: BASED ON PTT LAB RESULTS Last Admin: 10/01/18 10:30 Dose: 1,500 units Heparin Sodium/Dextrose (Heparin 25,000 Units In D5w 500 Ml) 25,000 units in 500 mls @ 26 mls/hr IV TITRATE [facility]; Protocol Last Admin: 10/02/18 04:27 Dose: 13.7 units/kg/hr, 30.425 mls/hr Lisinopril (Prinivil) 20 mg PO DAILY [facility] Last Admin: 10/02/18 08:52 Dose: 20 mg Sodium Chloride (Saline Flush) 10 ml FLUSH ASDIRECTED PRN PRN Reason: Keep Vein Open Discontinued Medications Enoxaparin Sodium (Lovenox) 100 mg SUBCUT ONETIME ONE Stop: 09/30/18 09:54 Last Admin: 09/30/18 09:58 Dose: 100 mg Enoxaparin Sodium 80 mg/ (Enoxaparin Sodium 30 mg) 110 mg SUBCUT Q12H [facility] Heparin Sodium (Porcine) (Heparin Sodium) 5,000 units IVPUSH ONETIME ONE Stop: 09/30/18 20:01 Last Admin: 09/30/18 19:54 Dose: 5,000 units Sodium Chloride (Normal Saline) 1,000 mls @ 150 mls/hr IV ASDIRECTED [facility] Last Admin: 09/30/18 09:38 Dose: 150 mls/hr Sodium Chloride (Normal Saline) 80 mls @ 3 mls/sec IV ASDIRECTED [facility] Stop: 09/30/18 16:00 Last Admin: 09/30/18 09:26 Dose: 3 mls/sec Heparin Sodium/Dextrose (Heparin 25,000 Units In D5w 500 Ml) 25,000 units in 500 mls @ 2,887.014 mls/hr IV TITRATE [facility]; Protocol Iopamidol (Isovue-370 (76%)) 79 ml IV . DIRECTED [facility] Stop: 09/30/18 16:00 Last Admin: 09/30/18 09:27 Dose: 100 ml Sodium Chloride (Saline Flush) 10 ml FLUSH ONETIME ONE Stop: 09/30/18 09:01 Last Admin: 09/30/18 09:10 Dose: 10 ml Warfarin Sodium (Coumadin) 5 mg PO DAILY@1300 [facility] Last Admin: 09/30/18 14:20 Dose: 5 mg Warfarin Sodium (Coumadin) 5 mg PO ONETIME ONE Stop: 10/01/18 16:01 Last Admin: 10/01/18 17:35 Dose: 5 mg Warfarin Sodium (Coumadin) 5 mg PO ONETIME ONE Stop: 10/02/18 11:01 Last Admin: 10/02/18 11:54 Dose: 5 mg - Exam General: Alert, Oriented Lungs: Clear to Auscultation, Normal Respiratory Effort Cardiovascular: Regular Rate, Regular Rhythm GI/Abdominal Exam: Normal Bowel Sounds, Soft, Non-Tender, No Organomegaly, No Distention, No Abnormal Bruit, No Mass, Pelvis Stable Peripheral Pulses: 1+: Radial (L), Radial (R) Skin: Warm, Dry, Intact - Problem List Review Problem List Initiated/Reviewed/Updated: Yes - My Orders Last 24 Hours: My Active Orders 10/01/18 22:23 FACTOR V LEIDEN MUTATION Routine 10/03/18 05:00 INR,PT,PROTHROMBIN TIME [COAG] DAILY PTT,PARTIAL THROMBOPLSTIN TIME [COAG] Routine 10/04/18 05:00 INR,PT,PROTHROMBIN TIME [COAG] DAILY 10/05/18 05:00 INR,PT,PROTHROMBIN TIME [COAG] DAILY 10/06/18 05:00 INR,PT,PROTHROMBIN TIME [COAG] DAILY 10/07/18 05:00 INR,PT,PROTHROMBIN TIME [COAG] DAILY 10/08/18 05:00 INR,PT,PROTHROMBIN TIME [COAG] DAILY 10/09/18 05:00 INR,PT,PROTHROMBIN TIME [COAG] DAILY 10/10/18 05:00 INR,PT,PROTHROMBIN TIME [COAG] DAILY 10/11/18 05:00 INR,PT,PROTHROMBIN TIME [COAG] DAILY 10/12/18 05:00 INR,PT,PROTHROMBIN TIME [COAG] DAILY - Plan Plan:: Assessment/plan: #1. Bilateral pulmonary embolism. ((The x-ray by CT angiogram showed significant involvement with a large burden acute pulmonary embolism in the distal main pulmonary arteries bilaterally extending into the segment and subsegmental pulmonary artery branches of all the lobes. There is evidence of right heart strain with enlargement of the right ventricle and a bowing of the interventricular septum. There is aneurysmal dilatation of the ascending thoracic aorta to 4.3 cm.)) He is doing much better today without SOB without oxygen. Factor V Leiden pending. Will continue with Heparin. Coumadin restarted today at 5 mg. #2. Deep vein thrombosis: ((There is acute partial occlusive thrombus within the right popliteal vein and acute occlusive thrombus within the right posterior tibial vein. The left lower extremity is unremarkable.)) Stable today #3. HTN: Continue with Lisinopril 118/81 this PM #4. Elevation of trop and CK. EKG was normal. Trop and CK dropping.
[2018-10-03] MEDS: Lisinopril 20 MG Tab PO SCH (08:01)
[2018-10-03] MEDS ORDERED: Warfarin 5 MG Tab PO ONE (08:55)
[2018-10-03] MEDS ORDERED: Warfarin 2.5 MG, Warfarin 5 MG PO ONE ×2 (10:00)
[2018-10-03] MEDS: Heparin Sodium/D5W 25,000 UNITS/500 ML BAG IV SCH (12:36)
--- NOTE | 2018-10-03 13:10 | PCM.PN ---
- General Info Date of Service: 10/03/18 - Review of Systems General: Reports: No Symptoms HEENT: Reports: No Symptoms Pulmonary: Reports: No Symptoms Cardiovascular: Reports: No Symptoms Gastrointestinal: Reports: No Symptoms Genitourinary: Reports: No Symptoms Musculoskeletal: Reports: No Symptoms Skin: Reports: No Symptoms Neurological: Reports: No Symptoms Psychiatric: Reports: No Symptoms - Patient Data Vitals - Most Recent: Last Vital Signs Temp 96.2 F 10/03/18 11:20 Pulse 64 10/03/18 11:20 Resp 18 10/03/18 11:20 BP 133/92 H 10/03/18 11:20 Pulse Ox 97 10/03/18 12:53 Weight - Most Recent: 244 lb 12.785 oz I&O - Last 24 Hours: Intake & Output 10/02/18 10/03/18 10/03/18 22:59 06:59 14:59 Intake Total 473 366 Output Total 300 950 375 Balance 173 -584 -375 Lab Results Last 24 Hours: Laboratory Results - last 24 hr 10/03/18 Range/Units 05:00 PT 11.5 (9.5-12.0) sec INR 1.07 (0.80-1.20) APTT 55.2 H (27.0-36.0) sec Med Orders - Current: Current Medications Heparin Sodium (Porcine) (Heparin Sodium) 1,500 - 2,500 units IVPUSH ASDIRECTED PRN PRN Reason: BASED ON PTT LAB RESULTS Last Admin: 10/01/18 10:30 Dose: 1,500 units Heparin Sodium/Dextrose (Heparin 25,000 Units In D5w 500 Ml) 25,000 units in 500 mls @ 26 mls/hr IV TITRATE [facility]; Protocol Last Admin: 10/03/18 12:36 Dose: 13.7 units/kg/hr, 30.425 mls/hr Lisinopril (Prinivil) 20 mg PO DAILY [facility] Last Admin: 10/03/18 08:01 Dose: 20 mg Sodium Chloride (Saline Flush) 10 ml FLUSH ASDIRECTED PRN PRN Reason: Keep Vein Open Discontinued Medications Enoxaparin Sodium (Lovenox) 100 mg SUBCUT ONETIME ONE Stop: 09/30/18 09:54 Last Admin: 09/30/18 09:58 Dose: 100 mg Enoxaparin Sodium 80 mg/ (Enoxaparin Sodium 30 mg) 110 mg SUBCUT Q12H [facility] Heparin Sodium (Porcine) (Heparin Sodium) 5,000 units IVPUSH ONETIME ONE Stop: 09/30/18 20:01 Last Admin: 09/30/18 19:54 Dose: 5,000 units Sodium Chloride (Normal Saline) 1,000 mls @ 150 mls/hr IV ASDIRECTED [facility] Last Admin: 09/30/18 09:38 Dose: 150 mls/hr Sodium Chloride (Normal Saline) 80 mls @ 3 mls/sec IV ASDIRECTED [facility] Stop: 09/30/18 16:00 Last Admin: 09/30/18 09:26 Dose: 3 mls/sec Heparin Sodium/Dextrose (Heparin 25,000 Units In D5w 500 Ml) 25,000 units in 500 mls @ 2,887.014 mls/hr IV TITRATE [facility]; Protocol Iopamidol (Isovue-370 (76%)) 79 ml IV . DIRECTED [facility] Stop: 09/30/18 16:00 Last Admin: 09/30/18 09:27 Dose: 100 ml Sodium Chloride (Saline Flush) 10 ml FLUSH ONETIME ONE Stop: 09/30/18 09:01 Last Admin: 09/30/18 09:10 Dose: 10 ml Warfarin Sodium (Coumadin) 5 mg PO DAILY@1300 [facility] Last Admin: 09/30/18 14:20 Dose: 5 mg Warfarin Sodium (Coumadin) 5 mg PO ONETIME ONE Stop: 10/01/18 16:01 Last Admin: 10/01/18 17:35 Dose: 5 mg Warfarin Sodium (Coumadin) 5 mg PO ONETIME ONE Stop: 10/02/18 11:01 Last Admin: 10/02/18 11:54 Dose: 5 mg Warfarin Sodium 2.5 mg/ (Warfarin Sodium 5 mg) 7.5 mg PO ONETIME ONE Stop: 10/03/18 10:01 Last Admin: 10/03/18 11:46 Dose: 7.5 mg - Exam General: Alert, Oriented Neck: Supple Lungs: Clear to Auscultation, Normal Respiratory Effort Cardiovascular: Regular Rate, Regular Rhythm Peripheral Pulses: 1+: Radial (L), Radial (R) Skin: Warm, Dry, Intact Neurological: No New Focal Deficit Psy/Mental Status: Alert, Normal Affect, Normal Mood - Problem List Review Problem List Initiated/Reviewed/Updated: Yes - My Orders Last 24 Hours: My Active Orders 10/04/18 05:00 INR,PT,PROTHROMBIN TIME [COAG] DAILY 10/05/18 05:00 INR,PT,PROTHROMBIN TIME [COAG] DAILY 10/06/18 05:00 INR,PT,PROTHROMBIN TIME [COAG] DAILY 10/07/18 05:00 INR,PT,PROTHROMBIN TIME [COAG] DAILY 10/08/18 05:00 INR,PT,PROTHROMBIN TIME [COAG] DAILY 10/09/18 05:00 INR,PT,PROTHROMBIN TIME [COAG] DAILY 10/10/18 05:00 INR,PT,PROTHROMBIN TIME [COAG] DAILY 10/11/18 05:00 INR,PT,PROTHROMBIN TIME [COAG] DAILY 10/12/18 05:00 INR,PT,PROTHROMBIN TIME [COAG] DAILY - Plan Plan:: Assessment/plan: #1. Bilateral pulmonary embolism. ((The x-ray by CT angiogram showed significant involvement with a large burden acute pulmonary embolism in the distal main pulmonary arteries bilaterally extending into the segment and subsegmental pulmonary artery branches of all the lobes. There is evidence of right heart strain with enlargement of the right ventricle and a bowing of the interventricular septum. There is aneurysmal dilatation of the ascending thoracic aorta to 4.3 cm.)) He is doing much better today without SOB without oxygen. Factor V Leiden pending. Will continue with Heparin. Coumadin continue and gave 7.5 today as INR 1.07. #2. Deep vein thrombosis: ((There is acute partial occlusive thrombus within the right popliteal vein and acute occlusive thrombus within the right posterior tibial vein. The left lower extremity is unremarkable.)) Stable today #3. HTN: Continue with Lisinopril 128/68 this PM #4. Elevation of trop and CK. EKG was normal.
[2018-10-04] MEDS: Heparin Sodium/D5W 25,000 UNITS/500 ML BAG IV SCH (05:10)
[2018-10-04] MEDS: Lisinopril 20 MG Tab PO SCH (08:23)
[2018-10-04] MEDS ORDERED: Rivaroxaban 15 MG Tab PO SCH (10:00)
--- NOTE | 2018-10-04 10:03 | PCM.PN ---
- General Info Date of Service: 10/04/18 - Review of Systems General: Reports: No Symptoms HEENT: Reports: No Symptoms Pulmonary: Reports: No Symptoms Cardiovascular: Reports: No Symptoms Gastrointestinal: Reports: No Symptoms Genitourinary: Reports: No Symptoms Musculoskeletal: Reports: No Symptoms Skin: Reports: No Symptoms Neurological: Reports: No Symptoms Psychiatric: Reports: No Symptoms - Patient Data Vitals - Most Recent: Last Vital Signs Temp 96.4 F 10/04/18 07:51 Pulse 48 L 10/04/18 07:51 Resp 16 10/04/18 07:51 BP 135/75 10/04/18 08:23 Pulse Ox 96 10/04/18 07:51 Weight - Most Recent: 244 lb 12.785 oz I&O - Last 24 Hours: Intake & Output 10/03/18 10/04/18 10/04/18 22:59 06:59 14:59 Intake Total 540 732 736 Output Total 750 425 375 Balance -210 307 361 Lab Results Last 24 Hours: Laboratory Results - last 24 hr 10/04/18 Range/Units 05:32 PT 12.7 H (9.5-12.0) sec INR 1.19 (0.80-1.20) APTT 60.6 H (27.0-36.0) sec Med Orders - Current: Current Medications Heparin Sodium/Dextrose (Heparin 25,000 Units In D5w 500 Ml) 25,000 units in 500 mls @ 26 mls/hr IV TITRATE [facility]; Protocol Last Admin: 10/04/18 05:10 Dose: 13.7 units/kg/hr, 30.425 mls/hr Lisinopril (Prinivil) 20 mg PO DAILY [facility] Last Admin: 10/04/18 08:23 Dose: 20 mg Rivaroxaban (Xarelto) 15 mg PO BID [facility] Sodium Chloride (Saline Flush) 10 ml FLUSH ASDIRECTED PRN PRN Reason: Keep Vein Open Warfarin Sodium (Coumadin) 5 mg PO ONETIME ONE Stop: 10/04/18 11:01 Discontinued Medications Enoxaparin Sodium (Lovenox) 100 mg SUBCUT ONETIME ONE Stop: 09/30/18 09:54 Last Admin: 09/30/18 09:58 Dose: 100 mg Enoxaparin Sodium 80 mg/ (Enoxaparin Sodium 30 mg) 110 mg SUBCUT Q12H [facility] Heparin Sodium (Porcine) (Heparin Sodium) 5,000 units IVPUSH ONETIME ONE Stop: 09/30/18 20:01 Last Admin: 09/30/18 19:54 Dose: 5,000 units Heparin Sodium (Porcine) (Heparin Sodium) 1,500 - 2,500 units IVPUSH ASDIRECTED PRN PRN Reason: BASED ON PTT LAB RESULTS Last Admin: 10/01/18 10:30 Dose: 1,500 units Sodium Chloride (Normal Saline) 1,000 mls @ 150 mls/hr IV ASDIRECTED [facility] Last Admin: 09/30/18 09:38 Dose: 150 mls/hr Sodium Chloride (Normal Saline) 80 mls @ 3 mls/sec IV ASDIRECTED [facility] Stop: 09/30/18 16:00 Last Admin: 09/30/18 09:26 Dose: 3 mls/sec Heparin Sodium/Dextrose (Heparin 25,000 Units In D5w 500 Ml) 25,000 units in 500 mls @ 2,887.014 mls/hr IV TITRATE [facility]; Protocol Iopamidol (Isovue-370 (76%)) 79 ml IV . DIRECTED [facility] Stop: 09/30/18 16:00 Last Admin: 09/30/18 09:27 Dose: 100 ml Sodium Chloride (Saline Flush) 10 ml FLUSH ONETIME ONE Stop: 09/30/18 09:01 Last Admin: 09/30/18 09:10 Dose: 10 ml Warfarin Sodium (Coumadin) 5 mg PO DAILY@1300 [facility] Last Admin: 09/30/18 14:20 Dose: 5 mg Warfarin Sodium (Coumadin) 5 mg PO ONETIME ONE Stop: 10/01/18 16:01 Last Admin: 10/01/18 17:35 Dose: 5 mg Warfarin Sodium (Coumadin) 5 mg PO ONETIME ONE Stop: 10/02/18 11:01 Last Admin: 10/02/18 11:54 Dose: 5 mg Warfarin Sodium 2.5 mg/ (Warfarin Sodium 5 mg) 7.5 mg PO ONETIME ONE Stop: 10/03/18 10:01 Last Admin: 10/03/18 11:46 Dose: 7.5 mg - Exam General: Alert, Oriented HEENT: Pupils Equal, Pupils Reactive, EOMI, Mucous Membr. Moist/[place] Neck: Supple Lungs: Clear to Auscultation, Normal Respiratory Effort Cardiovascular: Regular Rate, Regular Rhythm GI/Abdominal Exam: Normal Bowel Sounds, Soft, Non-Tender, No Organomegaly, No Distention, No Abnormal Bruit, No Mass, Pelvis Stable Peripheral Pulses: 1+: Radial (L), Radial (R) Skin: Warm, Dry, Intact Wound/Incisions: Healing Well Neurological: No New Focal Deficit Psy/Mental Status: Alert, Normal Affect, Normal Mood - Problem List Review Problem List Initiated/Reviewed/Updated: Yes - My Orders Last 24 Hours: My Active Orders 10/03/18 17:21 Cardiac Monitoring [RC] .As Directed 10/04/18 09:43 Ready for Discharge [RC] PER UNIT ROUTINE 10/04/18 10:00 Rivaroxaban [Xarelto] 15 mg PO BID 10/04/18 11:00 Warfarin [Coumadin] 5 mg PO ONETIME ONE 10/05/18 05:00 INR,PT,PROTHROMBIN TIME [COAG] DAILY 10/06/18 05:00 INR,PT,PROTHROMBIN TIME [COAG] DAILY 10/07/18 05:00 INR,PT,PROTHROMBIN TIME [COAG] DAILY 10/08/18 05:00 INR,PT,PROTHROMBIN TIME [COAG] DAILY 10/09/18 05:00 INR,PT,PROTHROMBIN TIME [COAG] DAILY 10/10/18 05:00 INR,PT,PROTHROMBIN TIME [COAG] DAILY 10/11/18 05:00 INR,PT,PROTHROMBIN TIME [COAG] DAILY 10/12/18 05:00 INR,PT,PROTHROMBIN TIME [COAG] DAILY - Plan Plan:: Assessment/plan: #1. Bilateral pulmonary embolism. ((The x-ray by CT angiogram showed significant involvement with a large burden acute pulmonary embolism in the distal main pulmonary arteries bilaterally extending into the segment and subsegmental pulmonary artery branches of all the lobes. There is evidence of right heart strain with enlargement of the right ventricle and a bowing of the interventricular septum. There is aneurysmal dilatation of the ascending thoracic aorta to 4.3 cm.)) He is doing much better today without SOB without oxygen. Factor V Leiden pending. Will discharge home on Xarelto 15mg twice daily for 3 weeks. Will not continue with Coumadin. #2. Deep vein thrombosis: ((There is acute partial occlusive thrombus within the right popliteal vein and acute occlusive thrombus within the right posterior tibial vein. The left lower extremity is unremarkable.)) Stable. #3. HTN: Continue with Lisinopril 128/68 this PM #4. Elevation of trop and CK. EKG was normal. #5. Aneurysmal dilatation of the ascending thoracic aorta. Will repeat evaluation in 3 months. Plan home today will give Xarelto 15 mg twice daily for 21 days then 20 mg daily for 4-8 months.
--- NOTE | 2018-10-04 10:09 | PCM.DCSUM1 ---
Discharge Summary - Hospital Course Diagnosis: Stroke: No - Discharge Data Discharge Date: 10/04/18 Discharge Disposition: Home, Self-Care 01 Condition: Good - Patient Summary/Data Hospital Course: Admitted with a diagnosis of Bilateral PE. Was given Lovenox in the ER and then changed to Heparin/protocol for PE. He had rapid improvement. Started Coumadin but was not responding to normal dosis so the day of discharge started Xarelto 15 mg twice daily and DC'd the Heparin. He will continue Xarelto 15 mg twice dialy for 3 weeks then changed to 20 mg daily. - Patient Instructions Activity: As Tolerated - Discharge Plan *PRESCRIPTION DRUG MONITORING PROGRAM REVIEWED*: No Home Medications: Home Meds Lisinopril 20 mg PO DAILY 08/05/17 [History] Rivaroxaban [Xarelto] 15 mg PO BID tablet 10/04/18 [Rx] Oxygen Therapy Mode: Room Air Patient Handouts: Pulmonary Embolism Referrals: Levon Hurtado Sr, MD [Primary Care Provider] - ([facility] tomorrow for lab work) - Discharge Summary/Plan Comment DC Time >30 min.: No Discharge Summary/Plan Comment: Assessment/plan: #1. Bilateral pulmonary embolism. ((The x-ray by CT angiogram showed significant involvement with a large burden acute pulmonary embolism in the distal main pulmonary arteries bilaterally extending into the segment and subsegmental pulmonary artery branches of all the lobes. There is evidence of right heart strain with enlargement of the right ventricle and a bowing of the interventricular septum. There is aneurysmal dilatation of the ascending thoracic aorta to 4.3 cm.)) He is doing much better today without SOB without oxygen. Factor V Leiden pending. Will discharge home on Xarelto 15mg twice daily for 3 weeks. Will not continue with Coumadin. #2. Deep vein thrombosis: ((There is acute partial occlusive thrombus within the right popliteal vein and acute occlusive thrombus within the right posterior tibial vein. The left lower extremity is unremarkable.)) Stable. #3. HTN: Continue with Lisinopril 128/68 this PM #4. Elevation of trop and CK. EKG was normal. #5. Aneurysmal dilatation of the ascending thoracic aorta. Will repeat evaluation in 3 months. Plan home today will give Xarelto 15 mg twice daily for 21 days then 20 mg daily for 4-8 months. - General Info Subjective Update: He is feeling good without concerns. He has no pain or shortness of breath. - Review of Systems General: Reports: No Symptoms HEENT: Reports: No Symptoms Pulmonary: Reports: No Symptoms Cardiovascular: Reports: No Symptoms Gastrointestinal: Reports: No Symptoms Genitourinary: Reports: No Symptoms Musculoskeletal: Reports: No Symptoms Skin: Reports: No Symptoms Neurological: Reports: No Symptoms Psychiatric: Reports: No Symptoms - Patient Data Vitals - Most Recent: Last Vital Signs Temp 96.4 F 10/04/18 07:51 Pulse 48 L 10/04/18 07:51 Resp 16 10/04/18 07:51 BP 135/75 10/04/18 08:23 Pulse Ox 96 10/04/18 07:51 Weight - Most Recent: 244 lb 12.785 oz I&O - Last 24 hours: Intake & Output 10/03/18 10/04/18 10/04/18 22:59 06:59 14:59 Intake Total 540 732 736 Output Total 750 425 375 Balance -210 307 361 Lab Results - Last 24 hrs: Laboratory Results - last 24 hr 10/04/18 Range/Units 05:32 PT 12.7 H (9.5-12.0) sec INR 1.19 (0.80-1.20) APTT 60.6 H (27.0-36.0) sec Med Orders - Current: Current Medications Heparin Sodium/Dextrose (Heparin 25,000 Units In D5w 500 Ml) 25,000 units in 500 mls @ 26 mls/hr IV TITRATE [facility]; Protocol Last Admin: 10/04/18 05:10 Dose: 13.7 units/kg/hr, 30.425 mls/hr Lisinopril (Prinivil) 20 mg PO DAILY [facility] Last Admin: 10/04/18 08:23 Dose: 20 mg Rivaroxaban (Xarelto) 15 mg PO BID [facility] Sodium Chloride (Saline Flush) 10 ml FLUSH ASDIRECTED PRN PRN Reason: Keep Vein Open Warfarin Sodium (Coumadin) 5 mg PO ONETIME ONE Stop: 10/04/18 11:01 Discontinued Medications Enoxaparin Sodium (Lovenox) 100 mg SUBCUT ONETIME ONE Stop: 09/30/18 09:54 Last Admin: 09/30/18 09:58 Dose: 100 mg Enoxaparin Sodium 80 mg/ (Enoxaparin Sodium 30 mg) 110 mg SUBCUT Q12H [facility] Heparin Sodium (Porcine) (Heparin Sodium) 5,000 units IVPUSH ONETIME ONE Stop: 09/30/18 20:01 Last Admin: 09/30/18 19:54 Dose: 5,000 units Heparin Sodium (Porcine) (Heparin Sodium) 1,500 - 2,500 units IVPUSH ASDIRECTED PRN PRN Reason: BASED ON PTT LAB RESULTS Last Admin: 10/01/18 10:30 Dose: 1,500 units Sodium Chloride (Normal Saline) 1,000 mls @ 150 mls/hr IV ASDIRECTED [facility] Last Admin: 09/30/18 09:38 Dose: 150 mls/hr Sodium Chloride (Normal Saline) 80 mls @ 3 mls/sec IV ASDIRECTED [facility] Stop: 09/30/18 16:00 Last Admin: 09/30/18 09:26 Dose: 3 mls/sec Heparin Sodium/Dextrose (Heparin 25,000 Units In D5w 500 Ml) 25,000 units in 500 mls @ 2,887.014 mls/hr IV TITRATE [facility]ANEL; Protocol Iopamidol (Isovue-370 (76%)) 79 ml IV . DIRECTED [facility] Stop: 09/30/18 16:00 Last Admin: 09/30/18 09:27 Dose: 100 ml Sodium Chloride (Saline Flush) 10 ml FLUSH ONETIME ONE Stop: 09/30/18 09:01 Last Admin: 09/30/18 09:10 Dose: 10 ml Warfarin Sodium (Coumadin) 5 mg PO DAILY@1300 [facility] Last Admin: 09/30/18 14:20 Dose: 5 mg Warfarin Sodium (Coumadin) 5 mg PO ONETIME ONE Stop: 10/01/18 16:01 Last Admin: 10/01/18 17:35 Dose: 5 mg Warfarin Sodium (Coumadin) 5 mg PO ONETIME ONE Stop: 10/02/18 11:01 Last Admin: 10/02/18 11:54 Dose: 5 mg Warfarin Sodium 2.5 mg/ (Warfarin Sodium 5 mg) 7.5 mg PO ONETIME ONE Stop: 10/03/18 10:01 Last Admin: 10/03/18 11:46 Dose: 7.5 mg - Exam General: Reports: Alert, Oriented HEENT: Reports: Pupils Equal Neck: Reports: Supple Lungs: Reports: Clear to Auscultation, Normal Respiratory Effort Cardiovascular: Reports: Regular Rate, Regular Rhythm GI/Abdominal Exam: Normal Bowel Sounds, Soft, Non-Tender, No Organomegaly, No Distention, No Abnormal Bruit, No Mass, Pelvis Stable Back Exam: Reports: Normal Inspection, Full Range of Motion Extremities: Normal Inspection, Normal Range of Motion, Non-Tender, No Pedal Edema, Normal Capillary Refill Skin: Reports: Warm, Dry, Intact Neurological: Reports: No New Focal Deficit Psy/Mental Status: Reports: Alert, Normal Affect, Normal Mood
[2018-10-04] MEDS ORDERED: Warfarin 5 MG Tab PO ONE (11:00)
== END 2018-10-04 11:24 | disposition home or self-care (01) | DRG 176 ==
LOC: JP.ED 07:13 → UNDOADMIN 10:40 → JP.MS 10:40
PROVIDERS: ADMIT Internal Medicine; ATTEND Internal Medicine
DX: I26.99 Other pulmonary embolism without acute cor pulmonale (principal); I82.431 Acute embolism and thrombosis of right popliteal vein; I82.441 Acute embolism and thrombosis of right tibial vein; H54.7 Unspecified visual loss; I10 Essential (primary) hypertension; G47.30 Sleep apnea, unspecified; E66.9 Obesity, unspecified; R74.8 Abnormal levels of other serum enzymes; I71.2 Thoracic aortic aneurysm, without rupture; Z79.899 Other long term (current) drug therapy
CPT/HCPCS: 36415; 71046; 71275; 80048; 83880; 84484; 85027; 85379; 96360; 96372; 99283; 99285; J1650; J7030 ×2; Q9967; 81241; 82550; 85610; 85730; 93005; 93970; 94762; A9270-GY; J1644

== ENCOUNTER 2021-06-18 02:31 | Emergency (ER) | payer MEDICARE, BC ==
[2021-06-18] MEDS ORDERED: Alum Hydrox/Mag Hydrox/Simeth 15 ML, Lidocaine 2% 15 ML PO ONE ×2 (02:47)
[2021-06-18 03:12] LABS: TROPONIN I HIGH SENSITIVITY 8.6 pg/mL (<=60.3)
[2021-06-18] MEDS ORDERED: HYDROmorphone 1 MG/ML Syringe IM ONE ×2 (03:36→04:25)
== END 2021-06-18 04:41 | disposition home or self-care (01) ==
LOC: JP.ED 02:31
DX: K80.70 Calculus of gallbladder and bile duct without cholecystitis without obstruction (principal); N20.0 Calculus of kidney; K57.30 Diverticulosis of large intestine without perforation or abscess without bleeding; I10 Essential (primary) hypertension; N40.0 Benign prostatic hyperplasia without lower urinary tract symptoms; E66.9 Obesity, unspecified; Z79.899 Other long term (current) drug therapy; Z79.01 Long term (current) use of anticoagulants; Z68.37 Body mass index [BMI] 37.0-37.9, adult
CPT/HCPCS: 36415; 74176; 80053; 81001; 83690; 84484; 85025; 85610; 93005; 93010; 96372; 99283; 99285-25; A9270-GY; J1170

== ENCOUNTER 2021-07-12 07:20 | Day surgery (SDC) | payer MEDICARE, BC ==
[2021-07-12] MEDS ORDERED: Sodium Chloride 0.9% 1,000 ML IV SCH (08:00)
[2021-07-12] MEDS ORDERED: Propofol 200 MG/20 ML SDV ONE (08:23)
[2021-07-12] MEDS ORDERED: fentaNYL 100 MCG/2 ML SDV ONE (08:23)
== END 2021-07-12 10:08 | disposition home or self-care (01) ==
LOC: JP.SDS 07:20
PROVIDERS: ATTEND Surgery
DX: K20.0 Eosinophilic esophagitis (principal); K22.89 Other specified disease of esophagus; I10 Essential (primary) hypertension; E66.9 Obesity, unspecified; Z86.711 Personal history of pulmonary embolism; Z68.35 Body mass index [BMI] 35.0-35.9, adult
CPT/HCPCS: 43239; J2704; J3010; J7030

== ENCOUNTER 2021-11-10 16:25 | Emergency (ER) | payer MEDICARE, BC | END 2021-11-10 19:56 | disposition home or self-care (01) | LOC: JP.ED 16:25 | DX: T63.441A Toxic effect of venom of bees, accidental (unintentional), initial encounter (principal); H05.012 Cellulitis of left orbit; H00.034 Abscess of left upper eyelid; H10.022 Other mucopurulent conjunctivitis, left eye; I10 Essential (primary) hypertension; Z79.899 Other long term (current) drug therapy; Z79.01 Long term (current) use of anticoagulants | CPT/HCPCS: 99283 ==

== ENCOUNTER → 2021-12-03 | Day surgery (SDC) | payer MEDICARE, BC ==
[~2021-12-03] MED LIST: Bacitracin Oint 1 GM U/D Packet ONE; Bupivacaine 0.5% 50 ML MDV ONE; Dextrose 5%-Lactated Ringers 1,000 ML IV SCH; Lidocaine 1% with EPINEPHrine 1:100,000 50 ML MDV ONE; Midazolam 1 MG/ML 2 ML SDV ONE; Propofol 200 MG/20 ML SDV ONE; ceFAZolin 2 GM in Premix Bag 1 BAG IV ONE; ceFAZolin 2 GM in Sodium Chloride 0.9% 50 ML IV ONE; fentaNYL 100 MCG/2 ML SDV ONE
== END ==
LOC: JP.SDS 06:00
PROVIDERS: ATTEND Surgery
DX: C44.622 Squamous cell carcinoma of skin of right upper limb, including shoulder (principal); I10 Essential (primary) hypertension; Z79.899 Other long term (current) drug therapy
CPT/HCPCS: 11622; 11624; 12034; 88305; J0690; J2250; J2704; J3010; J3490; J7121

== ENCOUNTER 2022-07-25 07:53 | Day surgery (SDC) | payer MEDICARE, BC ==
[2022-07-25] MEDS ORDERED: Sodium Chloride 0.9% 10 ML Syringe FLUSH ONE (08:15)
== END 2022-07-25 09:16 | disposition home or self-care (01) ==
LOC: JP.SDS 07:53
PROVIDERS: ATTEND Ophthalmology
DX: H26.9 Unspecified cataract (principal); I26.99 Other pulmonary embolism without acute cor pulmonale
CPT/HCPCS: 66984; J3490

== ENCOUNTER 2022-08-08 08:07 | Day surgery (SDC) | payer MEDICARE, BC ==
[2022-08-08] MEDS ORDERED: Sodium Chloride 0.9% 10 ML Syringe FLUSH PRN (08:45)
== END 2022-08-08 09:20 | disposition home or self-care (01) ==
LOC: JP.SDS 08:07
PROVIDERS: ATTEND Ophthalmology
DX: H26.9 Unspecified cataract (principal); Z79.899 Other long term (current) drug therapy
CPT/HCPCS: 66984; J3490

== ENCOUNTER 2022-12-21 02:54 | Emergency (ER) | payer MEDICARE, BC ==
[2022-12-21] MEDS ORDERED: Aspirin 81 MG Tab.Chew PO ONE (03:23)
[2022-12-21] MEDS ORDERED: Sodium Chloride 0.9% 10 ML Syringe FLUSH PRN (03:23)
[2022-12-21] MEDS ORDERED: Nitroglycerin 0.4 MG Tab.SL SL PRN (03:23)
[2022-12-21] MEDS ORDERED: Alum Hydrox/Mag Hydrox/Simeth 15 ML, Lidocaine 2% 15 ML PO ONE ×2 (03:26)
[2022-12-21] MEDS ORDERED: Sodium Chloride 0.9% 1,000 ML IV SCH (03:30)
[2022-12-21 03:38] LABS: BASOPHILS ABSOLUTE AUTO 0.04 K/uL (0.00-0.10); BASOPHILS PERCENT AUTO 0.4 % (0.1-1.3); EOSINOPHILS PERCENT AUTO 0.9 % (0.0-5.4); HEMATOCRIT 41.6 % (38.4-49.7); HEMOGLOBIN 13.9 g/dL (12.9-16.9); IMMATURE GRAN ABSOLUTE AUTO 0.04 K/uL (0.00-0.23); IMMATURE GRAN PERCENT AUTO 0.4 % (0.0-0.7); LYMPHOCYTES ABSOLUTE AUTO 1.72 K/uL (0.8-3.3); LYMPHOCYTES PERCENT AUTO 16.3 % (11.4-47.7); MEAN CORPUSCULAR HEMOGLOBIN 31.2 pg (31.6-35.5); MEAN CORPUSCULAR HGB CONC 33.4 g/dL (31.6-35.5); MEAN CORPUSCULAR VOLUME 93.5 fL (81.4-99.0); MONOCYTES ABSOLUTE AUTO 0.75 K/uL (0.20-0.90); MONOCYTES PERCENT AUTO 7.1 % (3.3-12.6); NEUTROPHILS ABSOLUTE AUTO 7.91 K/uL (1.0-7.6); NEUTROPHILS PERCENT AUTO 74.9 % (40.0-78.1); PLATELET COUNT,PLT 177 K/uL (130-375); RED BLOOD CELL COUNT 4.45 M/uL (4.14-5.76); WHITE BLOOD CELL COUNT,WBC 10.6 K/uL (3.2-11.0)
[2022-12-21 03:59] LABS: A/G RATIO 1.1 (1.2-2.2); ALANINE AMINOTRANSFERASE,ALT 36 U/L (12-78); ALBUMIN 3.8 g/dL (3.4-5.0); ALKALINE PHOSPHATASE 70 U/L (46-116); ANION GAP 8.9 mmol/L (5.0-14.0); ASPARTATE AMNIOTRANSFERASE,AST 33 U/L (15-37); BILIRUBIN TOTAL 0.7 mg/dL (0.2-1.0); BLOOD UREA NITROGEN,BUN 29 mg/dL (7-18); CALCIUM 9.6 mg/dL (8.5-10.1); CARBON DIOXIDE,CO2 27 mmol/L (21-32); CHLORIDE,CL 104 mmol/L (100-108); CREATININE 1.5 mg/dL (0.8-1.3); ESTIMATED GFR 49 mL/min (>60); GLUCOSE RANDOM 140 mg/dL (74-106); PROTEIN TOTAL,TP 7.3 g/dL (6.4-8.2); SODIUM,NA 140 mmol/L (140-148)
[2022-12-21] MEDS: Morphine 4 MG/ML Syringe IVPUSH PRN ×2 (04:00→04:44)
[2022-12-21] MEDS ORDERED: Ondansetron 4 MG/2 ML SDV IVPUSH ONE (04:08)
[2022-12-21] MEDS ORDERED: Sodium Chloride 0.9% 10 ML Syringe FLUSH ONE (04:20)
[2022-12-21] MEDS ORDERED: Iopamidol 612 MG/ML 100 ML Bottle IV SCH (04:30)
[2022-12-21] MEDS ORDERED: Sodium Chloride 0.9% 50 ML IV SCH (04:30)
[2022-12-21] MEDS ORDERED: Ketorolac 30 MG/ML SDV IVPUSH ONE (05:14)
== END 2022-12-21 06:30 | disposition home or self-care (01) ==
LOC: JP.ED 02:54
DX: K80.70 Calculus of gallbladder and bile duct without cholecystitis without obstruction (principal); I10 Essential (primary) hypertension; E66.9 Obesity, unspecified; Z68.37 Body mass index [BMI] 37.0-37.9, adult; Z86.718 Personal history of other venous thrombosis and embolism; Z79.01 Long term (current) use of anticoagulants; Z79.899 Other long term (current) drug therapy
CPT/HCPCS: 36415; 71045; 74177; 80053; 83605; 83690; 84484; 85025; 93005; 96374; 96375; 99284; A9270; J1885; J2270; J2405; J3490; J7030; Q9967

== ENCOUNTER 2022-12-24 08:14 | Day surgery (SDC) | payer MEDICARE, BC ==
[~2022-12-24 08:14] MED LIST changes: -Bacitracin Oint 1 GM U/D Packet ONE; +Bupivacaine 0.5% 30 ML SDV ONE; -Bupivacaine 0.5% 50 ML MDV ONE; -Dextrose 5%-Lactated Ringers 1,000 ML IV SCH; -Lidocaine 1% with EPINEPHrine 1:100,000 50 ML MDV ONE; -Midazolam 1 MG/ML 2 ML SDV ONE; -Propofol 200 MG/20 ML SDV ONE; -ceFAZolin 2 GM in Premix Bag 1 BAG IV ONE; -ceFAZolin 2 GM in Sodium Chloride 0.9% 50 ML IV ONE; -fentaNYL 100 MCG/2 ML SDV ONE
[2022-12-24] MEDS ORDERED: Indocyanine Green 25 MG SDV INJECT ONE (08:45)
[2022-12-24] MEDS ORDERED: Sodium Chloride 0.9% 1,000 ML IV SCH (09:00)
[2022-12-24] MEDS ORDERED: fentaNYL 250 MCG/5 ML SDV ONE (09:25)
[2022-12-24] MEDS ORDERED: Propofol 200 MG/20 ML SDV ONE (09:26)
[2022-12-24] MEDS ORDERED: Rocuronium 50 MG/5 ML Vial ONE (09:26)
[2022-12-24] MEDS ORDERED: Succinylcholine 200 MG/10 ML MDV ONE (09:26)
[2022-12-24] MEDS ORDERED: Dexamethasone 4 MG/ML SDV ONE (09:26)
[2022-12-24] MEDS ORDERED: Glycopyrrolate 0.2 MG/ML 5 ML MDV ONE (09:26)
[2022-12-24] MEDS ORDERED: Ondansetron 4 MG/2 ML SDV ONE (09:26)
[2022-12-24] MEDS ORDERED: Neostigmine Methylsulfate 1 MG/ML 5 ML Syringe ONE (09:26)
[2022-12-24] MEDS ORDERED: Zolpidem 5 MG Tab PO PRN (09:34)
[2022-12-24] MEDS ORDERED: Acetaminophen/HYDROcodone 325-5 MG Tab PO PRN (09:34)
[2022-12-24] MEDS ORDERED: hydrOXYzine HCL 100 MG/2 ML SDV IM PRN (09:34)
[2022-12-24] MEDS ORDERED: Ondansetron 4 MG/2 ML SDV IVPUSH PRN (09:34)
[2022-12-24] MEDS ORDERED: fentaNYL 100 MCG/2 ML SDV IVPUSH PRN ×3 (09:34)
[2022-12-24] MEDS ORDERED: Docusate Sodium 100 MG Cap PO PRN (09:34)
[2022-12-24] MEDS ORDERED: Benzocaine/Cetylpyridinium/Menthol Lozenge MUCMEM PRN (09:34)
[2022-12-24] MEDS ORDERED: Scopolamine 1.5 MG Transdermal Patch TOP ONE (10:00)
[2022-12-24] MEDS ORDERED: metroNIDAZOLE/Normal Saline 500 MG in Premix Bag 1 BAG IV ONE (10:00)
[2022-12-24] MEDS ORDERED: ceFAZolin 2 GM in Premix Bag 1 BAG IV ONE (10:00)
[2022-12-24] MEDS ORDERED: Lactated Ringers 1,000 ML ONE (11:31)
[2022-12-24] MEDS ORDERED: SCOPOLAMINE PATCH CHECK TOP SCH (12:00)
[2022-12-24] MEDS ORDERED: fentaNYL 50 MCG/ML SDV IVPUSH ONE ×2 (12:29→12:30)
== END 2022-12-24 15:46 | disposition home or self-care (01) ==
LOC: UNDOADMIN 08:14 → JP.SDSSCHI 08:14 → JP.SDS 08:14 → EDSTATUS 10:00 → JP.SDS 15:46 → UNDODISIN 15:46
PROVIDERS: ATTEND Surgery
DX: K80.10 Calculus of gallbladder with chronic cholecystitis without obstruction (principal); I10 Essential (primary) hypertension; E78.5 Hyperlipidemia, unspecified; E66.9 Obesity, unspecified; Z68.38 Body mass index [BMI] 38.0-38.9, adult; N40.1 Benign prostatic hyperplasia with lower urinary tract symptoms; Z86.711 Personal history of pulmonary embolism; Z79.01 Long term (current) use of anticoagulants; Z79.899 Other long term (current) drug therapy
CPT/HCPCS: 88304; A9270-GY; J0171; J0330; J0690; J1100; J2405; J2704; J2710; J2795; J3010; J3410; J3490; J7030; J7120